=== PATIENT | female | born 1995 | race Two or more races ===

== ENCOUNTER 2020-04-17 06:52 | Emergency (ER) | payer MEDICAID ==
[~2020-04-17] VITALS: Ht 152.4 cm; Wt 48.0 kg
[2020-04-17 08:22] LABS: BASOPHILS % 0.7 % (0.0-2.0); EOSINOPHILS % 0.6 % (0.0-5.0); HEMATOCRIT. 28.3 % (36.0-48.0); HEMOGLOBIN. 8.6 g/dL (12.0-16.0); LYMPHOCYTES % 15.6 % (20.0-50.0); MEAN CORPUSCULAR HEMOGLOBIN 19.7 pg (28.0-32.0); MEAN CORPUSCULAR VOLUME 64.7 fL (81.0-99.0); MEAN PLATELET VOLUME 7.2 fl (7.4-10.4); MONOCYTES % 6.7 % (2.0-8.0); NEUTROPHILS % 76.4 % (40.0-76.0); PLATELET 283 x1000/uL (130-400); RED BLOOD CELL COUNT 4.37 mill/uL (4.2-5.4); RED CELL DISTRIBUTION WIDTH 18.3 % (11.6-14.6)
[2020-04-17 08:30] LABS: HCG SCREEN NEGATIVE
[2020-04-17 08:31] LABS: PROTHROMBIN TIME 10.8 sec (9.6-11.0)
[2020-04-17 08:38] LABS: CLARITY URINE CLEAR (CLEAR); COLOR URINE YELLOW (YELLOW); KETONES URINE NEGATIVE (NEGATIVE); LEUKOCYTE ESTERASE URINE NEGATIVE (NEGATIVE); NITRITE URINE NEGATIVE (NEGATIVE); OCCULT BLOOD URINE TRACE (NEGATIVE); PROTEIN URINE NEGATIVE (NEGATIVE); SPECIFIC GRAVITY URINE 1.018 (1.005-1.030); UROBILINOGEN URINE 0.2 E.U./dL (0.2-1.0)
[2020-04-17 08:41] LABS: PLATELET ESTIMATE NORMAL
[2020-04-17 08:44] LABS: CHLORIDE 108 mEq/L (98-107)
[2020-04-17 09:00] VITALS: BP 97/56
[2020-04-17] MEDS ORDERED: FUROSEMIDE 100MG/10ML VIAL IVP ONE (10:45)
[2020-04-17] MEDS ORDERED: ASPIRIN 325MG EC TABLET PO ONE (11:00)
[2020-04-17] MEDS ORDERED: POLY119P2 MT (11:15)
[2020-04-17] MEDS ORDERED: FERR324T4 MT (11:16)
[2020-04-17] MEDS ORDERED: IOHEXOL-300 100 ML BOTTLE ONE (17:15)
== END 2020-04-17 12:28 | disposition home or self-care (01) ==
LOC: ER 06:52
DX: R10.84 Generalized abdominal pain (principal); K59.00 Constipation, unspecified; R55 Syncope and collapse; D64.9 Anemia, unspecified; Z20.822 Contact with and (suspected) exposure to COVID-19
CPT/HCPCS: 36415; 71045; 74177; 80053; 81003; 81025; 84703; 85025; 85610; 86850; 86900; 86901; 93005; 99285; J1940; Q9967